=== PATIENT | female | born 1975 | race Caucasian/White ===

== ENCOUNTER 2016-12-08 16:11 | Emergency (ER) | payer OTHER ==
[~2016-12-08] VITALS: Ht 157.5 cm; Wt 107.2 kg
[~2016-12-08 16:11] MED LIST: LOSA25TA14 PO
[2016-12-08 17:17] VITALS: BP 112/83
--- NOTE | 2016-12-08 19:28 | NUR ---
TO ER BED 8
--- NOTE | 2016-12-08 19:54 | NUR ---
Patient being evaluated by physician at bedside.
--- NOTE | 2016-12-08 20:15 | NUR ---
BLOOD DRAWN BY ELEVATOR REPAIR MECHANIC.
[2016-12-08 20:22] LABS: BASOPHILS # (AUTO) 0.6 K/uL (0.00-0.22); EOSINOPHILS # (AUTO) 0.2 K/uL (0-0.4); HEMATOCRIT 38.8 % (36-48); HEMOGLOBIN 12.9 g/dL (12.0-16.0); LYMPHOCYTES # (AUTO) 2.4 K/uL (2.5-16.5); MEAN CORPUSCULAR HEMOGLOBIN 31 pg (27-31); MEAN CORPUSCULAR HGB CONC 33 g/dL (33-37); MEAN CORPUSCULAR VOLUME 92 fL (80-94); MONOCYTES # (AUTO) 0.6 K/uL (0.8-1.0); PLATELET COUNT (AUTO) 191 K/uL (140-450); RED BLOOD CELL COUNT(AUTO) 4.24 MIL/uL (4.20-5.40); RED CELL DISTRIBUTION WIDTH 13.1 % (11.6-13.7); WHITE BLOOD COUNT (AUTO) 10.8 K/uL (4.8-10.8)
--- NOTE | 2016-12-08 20:22 | NUR ---
URINE HCG AND DIPSTICK DONE. WENT FOR CT OF ABDOMEN AND PELVIS VIA WHEELCHAIR.
--- NOTE | 2016-12-08 20:33 | NUR ---
BACK FROM CT SCAN.
[2016-12-08 20:34] LABS: ANION GAP 15.2 (8-16); CARBON DIOXIDE 22.5 mmol/L (21-32); POTASSIUM 3.7 mmol/L (3.5-5.1)
[2016-12-08 20:40] LABS: ALBUMIN 3.8 g/dL (3.4-5.0); TOTAL BILIRUBIN 0.6 mg/dL (0.0-1.0)
--- NOTE | 2016-12-08 21:11 | NUR ---
MD BACK AT BEDSIDE TO RE-EVALUATE AND IDSCUSS PLAN OF CARE WITH PATIENT.
--- NOTE | 2016-12-08 21:30 | NUR ---
DISCHARGED STABLE. PRESCRIPTION,VERBAL AND WRITTEN AFTERCARE INSTRUCTIONS GIVEN. VERBALIZED UNDERSTANDING.
[2016-12-08 22:00] VITALS: BP 127/89
== END 2016-12-08 21:30 | disposition home or self-care (01) ==
LOC: MED 16:11
DX: M54.5 Low back pain (principal); K21.9 Gastro-esophageal reflux disease without esophagitis; I10 Essential (primary) hypertension; Z79.899 Other long term (current) drug therapy
CPT/HCPCS: 36415; 80053; 81002; 81025; 85025; 99285

== ENCOUNTER 2019-08-25 18:34 | Emergency (ER) | payer OTHER ==
[~2019-08-25] VITALS: Ht 157.5 cm; Wt 96.2 kg
[~2019-08-25 18:34] MED LIST changes: -LOSA25TA14 PO; +LOSA25TA32 PO
[2019-08-25 18:42] VITALS: BP 144/92
[2019-08-25] MEDS ORDERED: HYDROcodone/APAP 5/325 MG 1 TAB TAB PO ONE (19:25)
[2019-08-25 20:02] VITALS: BP 144/92
== END 2019-08-25 20:02 | disposition home or self-care (01) ==
LOC: MED 18:34
DX: S92.351A Displaced fracture of fifth metatarsal bone, right foot, initial encounter for closed fracture (principal); I10 Essential (primary) hypertension; K21.9 Gastro-esophageal reflux disease without esophagitis; N28.9 Disorder of kidney and ureter, unspecified; Z79.899 Other long term (current) drug therapy; Y08.89XA Assault by other specified means, initial encounter; Y93.89 Activity, other specified; Y92.89 Other specified places as the place of occurrence of the external cause; Y99.8 Other external cause status
CPT/HCPCS: 73660; 99283